=== PATIENT | male | born 1945 | race Caucasian/White ===

== ENCOUNTER 2017-08-21 15:14 | Emergency (ER) | payer BC, OTHER ==
[2017-08-21 15:23] VITALS: O2SAT 94
--- NOTE | 2017-08-21 15:34 | CPEKG ---
Heart Rate: 89 RR Interval: 674 P-R Interval: 232 QRSD Interval: 144 QT Interval: 416 QTC Interval: 507 P [place]: 43 QRS [place]: -48 T Wave [place]: -8 EKG Severity - ABNORMAL ECG - EKG Impression: SINUS RHYTHM EKG Impression: VENTRICULAR BIGEMINY EKG Impression: FIRST DEGREE AV BLOCK EKG Impression: RIGHT BUNDLE BRANCH BLOCK Electronically Signed By: Jose Dave 21-Aug-2017 15:48:31
[2017-08-21 15:36] LABS: PLATELET COUNT 167 10^3/uL (150-400)
--- NOTE | 2017-08-21 15:36 | EDPHY ---
H & P Time Seen by Provider: 08/21/17 15:16 HPI/ROS: CHIEF COMPLAINT: Heart rate in the 30s HISTORY OF PRESENT ILLNESS: 72-year-old man was here for pulmonary rehab and the monitor at rehab was reading a heart rate of 37. He is brought here for evaluation. The patient denies chest pain or palpitations or feeling dizzy or lightheaded. He did have a stress test for some type of "flutter "at the [facility] 2 and half weeks ago was started on metoprolol and he is up to 50 mg a day. Feels a little bit more tired than when he started but otherwise feels all right. No dizziness or syncope or near syncope. REVIEW OF SYSTEMS: Eye: no change in vision ENT: no sore throat Cardiac: no chest pain or syncope Pulmonary: Chronic short of breath after a VATS procedure in 2011, has interstitial lung disease. Not changed from usual. Abdomen: no vomiting, diarrhea, abdominal pain Musculoskeletal: no back pain Skin: no rash Neuro: no headache Constitutional: no fever : no urinary symptoms A comprehensive 10 point review of systems is otherwise negative aside from elements mentioned in the history of present illness. PAST MEDICAL HISTORY: Interstitial lung disease, previous right lung surgery with VATS, cholecystectomy, appendectomy. Social history: Former smoker General Appearance: Alert and conversant, cooperative. Eyes: No scleral icterus. ENT, Mouth: Normal mucous membranes. Respiratory: Normal respiratory effort, breath sounds equal, lungs are clear to auscultation. Cardiovascular: Regular rate with frequent extrasystole, consistent with bigeminy. No murmur. Gastrointestinal: Abdomen is soft and non tender. Neurological: Alert, face symmetric, normal motor and sensory in extremities. Skin: Warm and dry, no rashes. Musculoskeletal: Trace peripheral edema bilaterally but no calf tenderness. Psychiatric: Not agitated. Emergency Department course/MDM: The patient's rhythm strips from pulmonary rehab or personally reviewed. When he is in bigeminy with a rate of between 60 and 70, the monitor variously read a heart rate of 107, 78, and 37. In front of me his heart rate is in the 80s and he does not have any symptoms of severe bradycardia. This strips from rehab showed bigeminy and did not show bradycardia. Patient is warned he needs to ask his physician at the [facility] about the metoprolol given the fact that he is tired. I do think he is stable for discharge and does not require emergent pacemaker or medication adjustment or admission for monitoring given his presentation in the ED. 1555: Results discussed with patient, strips were reviewed since he has been here, no severe bradycardia, continues in bigeminy. Smoking Status: Never smoked Constitutional: Initial Vital Signs Temperature (C) 36.2 C 08/21/17 15:20 Heart Rate 77 08/21/17 15:20 Respiratory Rate 18 08/21/17 15:20 Blood Pressure 148/57 H 08/21/17 15:20 O2 Sat (%) 94 08/21/17 15:20 O2 Delivery Mode Room Air Allergies/Adverse Reactions: No Known Allergies Allergy (Unverified 08/21/17 15:19) Home Medications: Medication Instructions Recorded Albuterol 08/21/17 Amlodipine Besylate 08/21/17 Atorvastatin Calcium 08/21/17 Budesonide 08/21/17 Clobetasol 0.05% 08/21/17 Metoprolol Tartrate 08/21/17 Pantoprazole Sodium 08/21/17 Sertraline HCl 08/21/17 Zyrtec 08/21/17 traZODone 08/21/17 Medical Decision Making Differential Diagnosis: Differential considered including but not limited to bigeminy, sinus bradycardia , atrial fibrillation or flutter - Data Points Laboratory Results: Laboratory Results 08/21/17 15:20 08/21/17 15:20 08/21/17 08/21/17 15:20 15:20 WBC 10.47 10^3/uL H 10^3/uL (3.80-9.50) RBC 5.54 10^6/uL 10^6/uL (4.40-6.38) Hgb 17.2 g/dL g/dL (13.7-17.5) Hct 49.9 % % (40.0-51.0) MCV 90.1 fL fL (81.5-99.8) MCH 31.0 pg pg (27.9-34.1) MCHC 34.5 g/dL g/dL (32.4-36.7) RDW 14.1 % % (11.5-15.2) Plt Count 167 10^3/uL 10^3/uL (150-400) MPV 12.0 fL H fL (8.7-11.7) Neut % (Auto) 76.6 % H % (39.3-74.2) Lymph % (Auto) 13.8 % L % (15.0-45.0) Grand % (Auto) 7.1 % % (4.5-13.0) Eos % (Auto) 1.1 % % (0.6-7.6) Baso % (Auto) 0.5 % % (0.3-1.7) Nucleat RBC Rel Count 0.0 % % (0.0-0.2) Absolute Neuts (auto) 8.03 10^3/uL H 10^3/uL (1.70-6.50) Absolute Lymphs (auto) 1.44 10^3/uL 10^3/uL (1.00-3.00) Absolute Monos (auto) 0.74 10^3/uL 10^3/uL (0.30-0.80) Absolute Eos (auto) 0.12 10^3/uL 10^3/uL (0.03-0.40) Absolute Basos (auto) 0.05 10^3/uL 10^3/uL (0.02-0.10) Absolute Nucleated RBC 0.00 10^3/uL 10^3/uL (0-0.01) Immature Gran % 0.9 % % (0.0-1.1) Immature Gran # 0.09 10^3/uL 10^3/uL (0.00-0.10) Sodium 145 mEq/L mEq/L (135-145) Potassium 4.3 mEq/L mEq/L (3.5-5.2) Chloride 104 mEq/L mEq/L (97-110) Carbon Dioxide 27 mEq/l mEq/l (22-31) Anion Gap 14 mEq/L mEq/L (8-16) BUN 22 mg/dL mg/dL (7-23) Creatinine 1.0 mg/dL mg/dL (0.7-1.3) Estimated GFR > 60 Glucose 93 mg/dL mg/dL (70-100) Calcium 9.9 mg/dL mg/dL (8.5-10.4) Departure - Departure Disposition: Home, Routine, Self-Care Clinical Impression: Ventricular bigeminy Condition: Good Instructions: Premature Ventricular Contractions (ED) Additional Instructions: Do not increase or decrease your metoprolol dose until after speaking with [facility]. [facility] tomorrow to let her know that you are feeling very tired, possibly a side effect to the metoprolol. You were seen in the emergency department today for report of a pulse of 37, but your EKG showed bigeminy, your heart rate was between 70 and 90. Blood pressure was 148/57. Referrals: Dr. Vel [Other] - As per Instructions
[2017-08-21 16:11] VITALS: BP 102/59; PULSE 78; RESP 15; TEMP 98.1
== END 2017-08-21 16:11 | disposition home or self-care (01) ==
DX: I49.3 Ventricular premature depolarization (principal); Z87.891 Personal history of nicotine dependence

== ENCOUNTER → 2018-01-11 | Outpatient (CLI) | payer OTHER ==
[~2018-01-11] MED LIST: GADOBUTROL 10 ML VIAL IVP ONE
== END ==
LOC: FIMAGING 12:51
DX: I97.89 Other postprocedural complications and disorders of the circulatory system, not elsewhere classified (principal); I51.89 Other ill-defined heart diseases
CPT/HCPCS: 82565-PO; A9585

== ENCOUNTER 2018-02-12 10:18 | Inpatient (IN) | payer OTHER, BC ==
[2018-02-12] MEDS ORDERED: NS 1,000 ML IV ONE (10:51)
--- NOTE | 2018-02-12 11:10 | CPEKG ---
Heart Rate: 90 RR Interval: 667 P-R Interval: 224 QRSD Interval: 144 QT Interval: 396 QTC Interval: 485 P [place]: 40 QRS [place]: -36 T Wave [place]: 8 EKG Severity - ABNORMAL ECG - EKG Impression: SINUS RHYTHM EKG Impression: MULTIPLE VENTRICULAR PREMATURE COMPLEXES EKG Impression: FIRST DEGREE AV BLOCK EKG Impression: RIGHT BUNDLE BRANCH BLOCK Electronically Signed By: Steve Syed 12-Feb-2018 11:21:12
--- NOTE | 2018-02-12 11:20 | EDPHY ---
H & P Stated Complaint: R FLANK PAIN/NAUSEA Time Seen by Provider: 02/12/18 10:51 HPI/ROS: CHIEF COMPLAINT: Right flank pain HISTORY OF PRESENT ILLNESS: The patient presents to the ED with complaints of right flank pain which has been intermittent over the past week and worsening over the past day. The patient does report a history of nausea. He denies prior history of kidney stone. 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 The patient denies any vomiting. He denies any measured fever. He does complain of generalized weakness. The patient takes no anticoagulant medications. He does have a history of COPD and uses oxygen at night. The patient rates his pain is moderate in nature. REVIEW OF SYSTEMS: A comprehensive 10 point review of systems is otherwise negative aside from elements mentioned in the history of present illness. Source: Patient Exam Limitations: No limitations - Personal History Current Tetanus Diphtheria and Acellular Pertussis (TDAP): Yes - Medical/Surgical History Hx Asthma: No Hx Chronic Respiratory Disease: Yes Hx Diabetes: No Hx Cardiac Disease: No Hx Renal Disease: No Hx Cirrhosis: No Hx Alcoholism: No Hx HIV/AIDS: No Hx Splenectomy or Spleen Trauma: No Other PMH: PMH: pleural effusion with R lung scarring and surgical intervention 2012, hyperlipidemia, depression. PSH: appy, choly - Social History Smoking Status: Never smoked - Physical Exam Exam: General Appearance: Alert, mild discomfort Eyes: Pupils equal and round no pallor or injection ENT, Mouth: Mucous membranes moist Respiratory: There are no retractions, lungs are clear to auscultation Cardiovascular: Regular rate and rhythm Gastrointestinal: Tenderness to palpation right mid quadrant Back: Right CVA tenderness Neurological: 5/5 strength all 4 extremities Skin: Warm and dry, no rashes Musculoskeletal: Neck is supple nontender Extremities: symmetrical, full range of motion Constitutional: Initial Vital Signs Temperature (C) 36.7 C 02/12/18 10:26 Heart Rate 93 02/12/18 10:26 Respiratory Rate 18 02/12/18 10:26 Blood Pressure 133/106 H 02/12/18 10:26 O2 Sat (%) 93 02/12/18 10:26 O2 Delivery Mode Room Air Allergies/Adverse Reactions: No Known Allergies Allergy (Verified 02/12/18 10:23) Home Medications: Medication Instructions Recorded Atorvastatin Calcium 08/21/17 Budesonide 08/21/17 Clobetasol 0.05% 08/21/17 Metoprolol Tartrate 08/21/17 Pantoprazole Sodium 08/21/17 Sertraline HCl 08/21/17 Zyrtec 08/21/17 traZODone 08/21/17 Lisinopril 02/12/18 Medical Decision Making - Diagnostics EKG Interpretation: EKG: Complete interpretation has been separately recorded in the [facility] archive. Summary impression: Sinus rhythm, rate 90, first-degree AV block, right bundle branch block Imaging Results: Imaging Impressions Abdomen/Pelvis CT 02/12/18 12:42 Impression: 1. Moderate right hydroureteronephrosis secondary to a 6 mm obstructing calculus in the distal right ureter. 2. No left nephrolithiasis or hydronephrosis. 3. Prior cholecystectomy. 4. Sigmoid diverticulosis without diverticulitis. Attention: This CT examination is specifically designed to evaluate patients who are clinically suspected of having acute obstructive uropathy. This examination does not use radiographic contrast, and as such, provides only a limited evaluation of the abdomen, pelvis and retroperitoneum. If there is further clinical suspicion for pathological conditions other than obstructive uropathy, a complete CT evaluation of the abdomen and pelvis utilizing intravenous, oral, and rectal contrast should be considered. Findings and recommendations discussed with Emergency Department physician, Steve Syed at 1336 hour, 02/12/2018. Final report concurs with initial preliminary interpretation. ED Course/Re-evaluation: The patient presents the ED for evaluation of right flank pain. The patient does have a history of BPH and cystitis. His urinalysis does demonstrate fairly significant pyuria and bacteriuria. The patient was taken for CT scan of the abdomen pelvis which does demonstrate a 6 mm right ureteral stone and moderate associated hydronephrosis. The patient had an IV established. He received 1 g of IV ceftriaxone. Consultation was made with Urology at 1:15pm The patient will require admission to the hospital in the setting of a possible infected kidney stone. Case was discussed with hospitalist at 2:30 p.m.. He will be admitted by Dr. Watson. Still awaiting a return call from Dr. Burgess from urology. The patient is given a 0.5 mg of Dilaudid for pain control. He was also given 0.4 mg of Flomax. Differential Diagnosis: Differential diagnosis considered includes pyelonephritis, nephrolithiasis, ureterolithiasis, renal failure, dehydration, metabolic abnormality - Data Points Laboratory Results: Laboratory Results 02/12/18 11:00 02/12/18 11:00 02/12/18 02/12/18 02/12/18 11:25 11:00 11:00 WBC 10.44 10^3/uL H 10^3/uL (3.80-9.50) RBC 5.21 10^6/uL 10^6/uL (4.40-6.38) Hgb 16.0 g/dL g/dL (13.7-17.5) Hct 46.9 % % (40.0-51.0) MCV 90.0 fL fL (81.5-99.8) MCH 30.7 pg pg (27.9-34.1) MCHC 34.1 g/dL g/dL (32.4-36.7) RDW 14.4 % % (11.5-15.2) Plt Count 141 10^3/uL L 10^3/uL (150-400) MPV 11.5 fL fL (8.7-11.7) Neut % (Auto) 87.9 % H % (39.3-74.2) Lymph % (Auto) 4.1 % L % (15.0-45.0) [place] % (Auto) 5.9 % % (4.5-13.0) Eos % (Auto) 0.6 % % (0.6-7.6) Baso % (Auto) 0.4 % % (0.3-1.7) Nucleat RBC Rel Count 0.0 % % (0.0-0.2) Absolute Neuts (auto) 9.17 10^3/uL H 10^3/uL (1.70-6.50) Absolute Lymphs (auto) 0.43 10^3/uL L 10^3/uL (1.00-3.00) Absolute Monos (auto) 0.62 10^3/uL 10^3/uL (0.30-0.80) Absolute Eos (auto) 0.06 10^3/uL 10^3/uL (0.03-0.40) Absolute Basos (auto) 0.04 10^3/uL 10^3/uL (0.02-0.10) Absolute Nucleated RBC 0.00 10^3/uL 10^3/uL (0-0.01) Immature Gran % 1.1 % % (0.0-1.1) Immature Gran # 0.12 10^3/uL H 10^3/uL (0.00-0.10) Platelet Estimate Not Reported Sodium 141 mEq/L mEq/L (135-145) Potassium 4.3 mEq/L mEq/L (3.3-5.0) Chloride 108 mEq/L mEq/L (97-110) Carbon Dioxide 26 mEq/l mEq/l (22-31) Anion Gap 7 mEq/L L mEq/L (8-16) BUN 25 mg/dL H mg/dL (7-23) Creatinine 1.1 mg/dL mg/dL (0.7-1.3) Estimated GFR > 60 Glucose 133 mg/dL H mg/dL (70-100) Calcium 9.6 mg/dL mg/dL (8.5-10.4) Urine Color YELLOW Urine Appearance HAZY Urine pH 5.0 (5.0-7.5) Ur Specific [place] 1.023 (1.002-1.030) Urine Protein NEGATIVE (NEGATIVE) Urine Ketones NEGATIVE (NEGATIVE) Urine Blood 2+ H (NEGATIVE) Urine Nitrate NEGATIVE (NEGATIVE) Urine Bilirubin NEGATIVE (NEGATIVE) Urine Urobilinogen 2.0 EU H EU (0.2-1.0) Ur Leukocyte Esterase 3+ H (NEGATIVE) Urine RBC 15-25 /hpf H /hpf (0-3) Urine WBC 50-182 /hpf H /hpf (0-3) Ur Epithelial Cells TRACE /lpf /lpf (NONE-1+) Urine Bacteria TRACE /hpf H /hpf (NONE SEEN) Hyaline Casts 1-5 /lpf /lpf (0-1) Urine Mucus 2+ /lpf H /lpf (NONE-1+) Urine Glucose NEGATIVE (NEGATIVE) Medications Given: Discontinued Medications Hydrocodone Bitart/Acetaminophen ([place] 5/325) 1 tab PO EDNOW ONE Stop: 02/12/18 14:17 Last Admin: 02/12/18 14:23 Dose: Not Given Sodium Chloride (Ns) 1,000 mls @ 0 mls/hr IV EDNOW ONE; Wide Open PRN Reason: Protocol Stop: 02/12/18 10:52 Last Admin: 02/12/18 10:59 Dose: 1,000 mls Ceftriaxone Sodium/Dextrose (Rocephin 1 Gm (Premix)) 50 mls @ 100 mls/hr IV EDNOW ONE PRN Reason: Protocol Stop: 02/12/18 12:56 Last Admin: 02/12/18 12:46 Dose: 50 mls Tamsulosin HCl (Flomax) 0.4 mg PO EDNOW ONE Stop: 02/12/18 13:37 Last Admin: 02/12/18 13:41 Dose: 0.4 mg Departure - Departure Disposition: [facility] Inpatient Acute Clinical Impression: Acute pyelonephritis, Renal colic on right side Condition: Good Referrals: NONE *PRIMARY CARE P,. [Primary Care Provider] - As per Instructions
[2018-02-12 11:24] LABS: PLATELET COUNT 141 10^3/uL (150-400)
[2018-02-12] MEDS ORDERED: TAMSULOSIN HCL 0.4 MG CAP PO ONE (13:36)
[2018-02-12] MEDS ORDERED: HYDROCODONE/APAP 5/325 TAB PO ONE (14:16)
[2018-02-12] MEDS ORDERED: HYDROmorphONE/DILAUDID 2 MG/ML INJ IVP ONE (14:19)
[2018-02-12] MEDS ORDERED: ONDANSETRON DISINTEGRATING 4 MG TAB PO PRN (14:37)
[2018-02-12] MEDS ORDERED: ACETAMINOPHEN 325 MG TAB PO PRN (14:37)
[2018-02-12] MEDS ORDERED: FLUTICASONE NASAL 120 SPRAYS/16 GM MDI NS PRN (15:08)
--- NOTE | 2018-02-12 15:50 | GHP ---
[f rep st] HISTORY AND PHYSICAL DATE OF ADMISSION: 02/12/2018 CHIEF COMPLAINT: Right flank pain. HISTORY OF PRESENT ILLNESS: A 73-year-old male with hypertension, hyperlipidemia, presenting with right flank pain. This has been intermittent for the past week, dull in nature. It intensified last night and has been constant since then. Has mild nausea, subjective fevers, chills, and sweats. Reports normal p.o. intake. Noted loose stools. No headaches or myalgias. CT in the ER revealed a 6 mm stone right distal ureter. REVIEW OF SYSTEMS: I completed a 10-point review of systems, negative, except noted in HPI. PAST MEDICAL HISTORY: Hypertension, hyperlipidemia, pleural effusion, non- Hodgkin's lymphoma status post chemo, chronic hypoxemic respiratory failure, 2 L at night, PVCs. PAST SURGICAL HISTORY: Tonsillectomy and adenoidectomy, cholecystectomy, appendectomy, VATS. FAMILY HISTORY: Noncontributory. SOCIAL HISTORY: He was a [place] vet in the [place]. Works and lives here in [place], but his family is in [place]. Denies alcohol, tobacco, or illicits. ALLERGIES: Penicillin makes him nauseous. HOME MEDICATIONS: Triamcinolone spray, Vanicream, ketoconazole cream, desonide cream, Tylenol, Symbicort inhaler, atorvastatin 40 mg daily, trazodone 100 mg q.h.s., Zoloft 100 mg q.h.s., Protonix 40 mg daily, lisinopril 20. PHYSICAL EXAMINATION: VITAL SIGNS: Temperature 36.9, blood pressure is 116/74 , heart rate in the 70s, respirations 18, on room air 93%. GENERAL: Obese male lying in bed in no acute distress. HEENT: PERRLA. Mildly dry mucous membranes. CV: Regular rate and rhythm with occasional extra beat. LUNGS: Diminished, but no wheezing or crackles. ABDOMEN: Obese, soft, nontender, nondistended. : No suprapubic or CVA tenderness. MUSCULOSKELETAL: 5/5 upper lower extremity strength. NEURO: 2 through 12 intact. PSYCH: Alert and oriented x3. Very pleasant. LABORATORY/IMAGING: Sodium 141, potassium 4.3, chloride 108, carbon dioxide 26 , BUN 25, creatinine 1.1, baseline is 1, glucose 133, calcium 9.6. Urine: +3 leuks, 50-182 wbc's, trace bacteria. Urine culture pending. WBC 10, hemoglobin 16, hematocrit 46, platelets 141. CT abdomen and pelvis: Moderate right hydroureteronephrosis, secondary to 6 mm obstructing calculus in the right distal ureter. No left stones or hydronephrosis. Prior cholecystectomy, sigmoid diverticulosis without diverticulitis. EKG is personally reviewed by me: Normal sinus rhythm, PVC, right bundle branch block seen on prior. ASSESSMENT/PLAN: 1. Right distal ureter stone with urinary tract infection: IV CTX. Culture is pending. Dr. Berger was consulted from the emergency room. Pain control with oral opioids and Tylenol. 2. Hypertension. Lisinopril. 3. Hyperlipidemia. Statin. 4. History of non-Hodgkin's lymphoma, status post chemo. 5. Chronic hypoxemic respiratory failure: He attributes to prior video- assisted thoracoscopic surgery procedure on 2 L at night. 6. Premature ventricular contractions. Potassium is at goal. Add a magnesium. 7. Diet. Regular. 8. Deep venous thrombosis prophylaxis. Sequential compression devices. DISPOSITION: Patient warrants observation admission for acute kidney stone requiring IV antibiotics, pain control, and evaluation by the Urology. /[id number]/MODL MTDD
[2018-02-12] MEDS ORDERED: NS 1,000 ML IV SCH (17:30)
[2018-02-12] MEDS: SERTRALINE HCL 100 MG TAB PO SCH (20:54)
[2018-02-12] MEDS: traZODone 100 MG TAB PO SCH (20:54)
[2018-02-12] MEDS: BUDESONIDE/FORMOTEROL 80/4.5 60 PUFFS/MDI IH SCH (20:55)
--- NOTE | 2018-02-13 00:37 | SOAPPROG ---
SOAP Progress Note Assessment/Plan: Assessment: 1. Symptomatic distal right ureteral calculus. 2. Pyuria: asymptomatic. Plan: 1. Continue medical mgmt. until tomorrow. 2. Agree w/ starting IV antibiotics. 3. Proceed w/ intraoperative ureteroscopy on Sun. afternoon if he does not spontaneously pass the stone in the meantime. See dictated consult note (# [id number]) Objective: Vital Signs Temp Pulse Resp BP Pulse Ox 36.8 C 80 16 128/63 H 97 02/12/18 16:07 02/12/18 23:55 02/12/18 23:55 02/12/18 23:55 02/12/18 23:55 02/11/18 02/12/18 02/13/18 05:59 05:59 05:59 Intake Total 1250 Output Total 1275 Balance -25 ICD10 Worksheet Patient Problems: Problems Problem Status Onset Acute pyelonephritis Acute Renal colic on right side Acute
--- NOTE | 2018-02-13 05:08 | GCON ---
[f rep st] CONSULTATION UROLOGY CONSULTATION DATE OF CONSULTATION: 02/12/2018 REQUESTING PHYSICIAN: Hospitalist service. REASON FOR CONSULTATION: Right ureteral calculus. HISTORY: This is a 73-year-old gentleman who started experiencing right-sided flank and abdominal pain about 1 week ago. The pain was initially dull, but then intensified to the point that he presented to the emergency room earlier today. CT scan was performed, and the patient was noted to have a right ureteral calculus. I was asked to see the patient as a result. The patient has also experienced occasional nausea prior to admission, but denies fevers, flu-like symptoms, dysuria, nor gross hematuria, but he has had some night sweats. He denies any prior history of nephrolithiasis. PAST MEDICAL HISTORY: Notable for hypertension, high cholesterol, history of right pleural effusion in 2011, non-Hodgkin lymphoma in early , nocturnal hypoxemia, history of diverticulitis. PAST SURGICAL HISTORY: Includes tonsillectomy as a child, cholecystectomy in 2007, appendectomy, and VATS procedure for pleural effusion in 2011. FAMILY HISTORY: Not contributory. Specifically, no kidney stones to his knowledge. SOCIAL HISTORY: The patient is and lives in the [facility]. He denies current use of tobacco nor alcohol products. REVIEW OF SYSTEMS: Unremarkable other than mentioned above in the HPI and Past Medical History. PHYSICAL EXAMINATION: GENERAL: Obese white male lying supine in bed in no acute distress presently. VITAL SIGNS: Blood pressure 122/75, pulse 85, respirations 18, oxygen saturation is 93% on room air, temperature 36.8 Celsius. Height 176 cm, weight 111 kg, BMI 36. HEENT: Normocephalic, atraumatic. NECK: Supple. HEART: Regular rate. CHEST: Unlabored respiratory pattern. ABDOMEN: General obesity. No palpable abnormal masses. No obvious organomegaly, nontender and soft. BACK: No CVA tenderness. GENITALIA: Normal circumcised phallus with an adequate-sized urethral meatus in proper position. Scrotal structures are unremarkable. EXTREMITIES: Warm, without cyanosis, clubbing, nor significant edema. NEUROLOGIC: He is alert and oriented. He answers all questions appropriately with normal mood and affect. RADIOGRAPHIC STUDIES: Noncontrast abdominopelvic CT scan on admission: Upon my review, notable for mild to moderate right hydronephrosis and hydroureter down to an approximately 5 x 4 x 7 mm long distal right ureteral calculus. No other nephroureterolithiasis is appreciated. LABORATORY: Admission chemistry panel notable for creatinine 1.1 and normal electrolytes. Calcium 9.6. CBC notable for white blood cell count 10,400. Admission urinalysis notable for 3+ leukocyte on dipstick with 15-25 red blood cells, 50-182 white blood cells, and trace bacteria per high-power field. IMPRESSION: 1. Symptomatic distal right ureteral calculus. 2. Pyuria: He does not exhibit evidence of a symptomatic urinary tract infection at this time. Management options were reviewed with the patient in detail today. Surgical management for a non-passable ureteral calculus was reviewed, including technical aspects, expected benefits, typical recovery time, and potential risks /complications (including, but not limited to, urinary tract infection, urinary tract scarring, inability to remove or find an existing calculus, and ureteral stent side effects). PLAN: 1. Continue medical management with Flomax and IV fluids through the night. 2. The patient has already been started on Rocephin, which I believe makes sense considering his existing pyuria. 3. If he does not spontaneously pass the calculus by tomorrow, we will proceed with intraoperative ureteroscopy and calculus management with stent placement late tomorrow afternoon. Thank you for this consultation. /[id number]/MODL MTDD
[2018-02-13] MEDS: OXYCODONE/APAP 5/325 TAB PO PRN ×3 (05:45→20:21)
[2018-02-13] MEDS ORDERED: LISINOPRIL 20 MG TAB PO SCH (09:00)
[2018-02-13] MEDS ORDERED: ATORVASTATIN CALCIUM 40 MG TAB PO SCH (09:00)
[2018-02-13] MEDS: BUDESONIDE/FORMOTEROL 80/4.5 60 PUFFS/MDI IH SCH ×2 (09:53→20:24)
[2018-02-13] MEDS: VANICREAM CREAM TP SCH (10:17)
[2018-02-13] MEDS: PANTOPRAZOLE SODIUM 40 MG TAB PO SCH (10:18)
--- NOTE | 2018-02-13 11:01 | ASMTCMCOM ---
CM Note CM Note Notes: Patient admitted with flank pain - found to have a distal right ureteral calculus. Surgery planned for this afternoon if he does not pass stone. Patient is normally independent, and I don't anticipate any discharge needs. Case Management available if this changes. Date Signed: 02/13/2018 11:00 AM Electronically Signed By:Tavia Hills RN
--- NOTE | 2018-02-13 11:56 | HOSPPROG ---
Hospitalist Progress Note Assessment/Plan: [facility] Patient Name: ALIN FIGUEREDO Rpt#: [id number] Unit Number: [id number] Attending/ER Physician: Kaylen Watson MD Patient Type: ADM Carmen Adm Date/Source: 02/12/18 EMR Discharge Date: Primary Carrier: MEDICARE INPATIENT Patient is a 73 y/o male who presented with flank pain. CT in the ER revealed a 6 mm stone right distal ureter. Today is my first encounter with the patient, chart reviewed. * Right distal ureter stone -Flomax and fluids -ureteroscopy and stent placement today with Dr Berger -patient is anxious about the procedure; will add prn Ativan *possible UTI -patient has vague symptoms but urine shows pyuria -will continue Ceftriaxone * Hypertension. Lisinopril. * Hyperlipidemia. Statin. * History of non-Hodgkin's lymphoma, status post chemo. * Chronic hypoxemic respiratory failure: He attributes to prior video-assisted thoracoscopic surgery procedure on 2 L at night. * Premature ventricular contractions. Potassium is at goal. Add a magnesium. *Plan: he is not going for the procedure till later today (16:00) and will be given IV sedation and narcotics. He lives alone and will require another midnight stay to monitor after getting IV medications. Subjective: Lucio is feeling comfortable after getting pain meds and anti-nausea meds Objective: Vital Signs Temp Pulse Resp BP Pulse Ox 36.6 C 80 20 116/75 92 02/13/18 08:00 02/13/18 09:54 02/13/18 09:54 02/13/18 08:00 02/13/18 09:54 Laboratory Results 02/13/18 04:16 02/12/18 02/13/18 02/14/18 05:59 05:59 05:59 Intake Total 1750 Output Total 8870 725 Balance -125 -725 - Physical Exam Constitutional: appears nourished, not in pain, obese Eyes: PERRL Ears, Nose, Mouth, Throat: hearing normal Cardiovascular: regular rate and rhythym Respiratory: no respiratory distress Gastrointestinal: normoactive bowel sounds, other (large and round) Skin: warm Neurologic: AAOx3 Psychiatric: interacting appropriately ICD10 Worksheet Patient Problems: Problems Problem Status Onset Acute pyelonephritis Acute Renal colic on right side Acute
[2018-02-13] MEDS: ONDANSETRON 4 MG/2 ML VIAL IVP PRN ×2 (12:06→18:52)
[2018-02-13] MEDS: NS 1,000 ML IV SCH (12:07)
[2018-02-13] MEDS ORDERED: LISINOPRIL 10 MG TAB PO SCH (12:15)
[2018-02-13] MEDS ORDERED: LORazepam 2 MG/ML INJ IVP PRN (12:50)
[2018-02-13] MEDS ORDERED: HYDROmorphONE/DILAUDID 1 MG/ML INJ IVP PRN (12:50)
[2018-02-13] MEDS: ATORVASTATIN CALCIUM 20 MG TAB PO SCH (13:11)
[2018-02-13] MEDS: TAMSULOSIN HCL 0.4 MG CAP PO SCH (13:20)
[2018-02-13] MEDS ORDERED: LR 1,000 ML IV ONE (16:06)
[2018-02-13] MEDS ORDERED: IOPAMIDOL (ISOVUE-300) 150 ML BTL ONE (16:23)
[2018-02-13] MEDS ORDERED: LIDOCAINE 2% JELLY 20 ML (UROJECT) ONE (16:23)
[2018-02-13] MEDS ORDERED: IOPAMIDOL (ISOVUE-M 300) 15 ML VIAL ONE ×2 (16:23→16:28)
[2018-02-13] MEDS ORDERED: IOPAMIDOL (ISOVUE-M 200) 20 ML VIAL ONE (16:26)
[2018-02-13] MEDS ORDERED: HYDROCODONE/APAP 5/325 TAB PO PRN (16:43)
[2018-02-13] MEDS ORDERED: NALOXONE HCL 0.4 MG/ML INJ IVP PRN (16:43)
[2018-02-13] MEDS ORDERED: oxyCODONE IR 5 MG TAB PO PRN (16:43)
[2018-02-13] MEDS ORDERED: PROMETHAZINE HCL 25 MG/ML INJ IVP PRN (16:43)
[2018-02-13] MEDS ORDERED: ONDANSETRON 4 MG/2 ML VIAL IVP PRN (16:43)
[2018-02-13] MEDS ORDERED: DEXAMETHASONE 4 MG/ML VIAL IVP PRN (16:43)
[2018-02-13] MEDS ORDERED: fentaNYL 100 MCG/2 ML INJ IVP PRN (16:43)
[2018-02-13] MEDS ORDERED: ACETAMINOPHEN 500 MG TAB PO PRN (16:43)
[2018-02-13] MEDS ORDERED: LR 500 ML IV PRN (16:43)
[2018-02-13] MEDS ORDERED: ENALAPRILAT DIHYDRATE 1.25 MG/ML VIAL IVP PRN (16:43)
--- NOTE | 2018-02-13 16:43 | PDANEPAE ---
ANE Past Medical History - Cardiovascular History Hx Hypertension: Yes Hx Arrhythmias: Yes Hx Chest Pain: No Hx Coronary Artery / Peripheral Vascular Disease: No Hx CHF / Valvular Disease: No Hx Palpitations: No - Pulmonary History Hx COPD: Yes Hx Oxygen in Use at Home: Yes O2 in Use at Home (L/minute): 2 Hx Sleep Apnea: No Sleep Apnea Screening Result - Last Documented: Positive - Endocrine History Hx Diabetes: No Obesity: yes, moderate - Chronic Pain History Chronic Pain: No ANE Review of Systems Review of Systems: ANE Patient History - Allergies Allergies/Adverse Reactions: No Known Allergies Allergy (Verified 02/13/18 16:01) - Home Medications Home medications: home medication list seen and reviewed Home Medications: Atorvastatin Calcium [Lipitor 40 mg (*)] 20 mg PO DAILY 08/21/17 [Last Taken ] Budesonide/Formoterol 80/4.5 [Symbicort 80-4.5 Mcg Inhaler] 2 puffs IH BID 08/21 [Last Taken 02/11/18 21:00] Pantoprazole Sodium [Protonix 40mg (*)] 40 mg PO DAILY 08/21/17 [Last Taken ] Sertraline HCl [Zoloft 100mg (*)] 100 mg PO HS 08/21/17 [Last Taken 02/11/18] traZODone [traZODONE 100MG (*)] 100 mg PO HS 08/21/17 [Last Taken 02/11/18] Acetaminophen [Tylenol 325mg (*)] 650 - 975 mg PO DAILY PRN 02/12/18 [Last Taken 02/11/18 21:00 975MG] Desonide 0.05% [Desonide 0.05% Cream (*)] 1 leeanna TP DAILY 02/12/18 [Last Taken Unknown] Ketoconazole 2% [Nizoral Shampoo (*)] 1 leeanna TP DAILY 02/12/18 [Last Taken Unknown] Lisinopril [Zestril 20 mg (*)] 10 mg PO HS 02/12/18 [Last Taken 02/11/18] Triamcinolone Acetonide [Nasacort] 1 spray NS DAILY PRN 02/12/18 [Last Taken Unknown] Vanicream [Vanicream (*)] 1 leeanna TP DAILY 02/12/18 [Last Taken Unknown] - NPO status NPO Status: no food or drink >8 hours NPO Since - Liquids (Date): 02/13/18 NPO Since - Liquids (Time): 07:30 NPO Since - Solids (Date): 02/13/18 NPO Since - Solids (Time): 07:30 - Anes Hx Anes Hx: no prior problems - Smoking Hx Smoking Status: Never smoked ANE Labs/Vital Signs - Labs Result Diagrams: 02/12/18 11:00 02/13/18 04:16 - Vital Signs Blood Pressure: 122/78 Heart Rate: 113 Respiratory Rate: 18 O2 Sat (%): 93 Height: 176.53 cm Weight: 111.13 kg ANE Physical Exam - Airway Neck exam: FROM Mallampati Score: Class 2 Mouth exam: normal dental/mouth exam - Pulmonary Pulmonary: no respiratory distress, no rales or rhonchi, reduced air movement - Cardiovascular Cardiovascular: regular rate and rhythym, no murmur, rub, or gallop - ASA Status ASA Status: III ANE Anesthesia Plan Anesthesia Plan: GA w LMA
[2018-02-13] MEDS ORDERED: PROPOFOL 200 MG/20 ML VIAL ONE ×2 (16:50→17:27)
[2018-02-13] MEDS ORDERED: fentaNYL 100 MCG/2 ML INJ ONE ×2 (16:50→17:27)
[2018-02-13] MEDS ORDERED: LIDOCAINE 2% JELLY 5 ML TUBE ONE (16:51)
[2018-02-13] MEDS ORDERED: DEXAMETHASONE 4 MG/ML VIAL ONE (16:51)
[2018-02-13] MEDS ORDERED: ONDANSETRON 4 MG/2 ML VIAL ONE (16:51)
[2018-02-13] MEDS ORDERED: LIDOCAINE 2% 5 ML SDV ONE (17:09)
[2018-02-13] MEDS ORDERED: KETOROLAC 30 MG/1 ML SDV ONE (17:31)
--- NOTE | 2018-02-13 18:02 | POSTOPPROG ---
Post Op Note Date of Operation: 02/13/18 Surgeon: Cathleen Berger (# [id number]) Anesthesia: LMA Pre-op Diagnosis: Distal right ureteral calculus Post-op Diagnosis: Distal right ureteral calculus Procedure: Right ureteroscopy w/ laser litho & basket, stent placement Findings: See op note Inf/Abcess present in the surg proc area at time of surgery?: No EBL: Minimal Complications: None Drains: Other (4.7 Fr. variable length right ureteral stent) Specimen(s): Right ureteral calculus fragment Text Box - Additional Text Additional Text: Will order Edmonds removal in AM, then should be ready for discharge from my standpoint anytime thereafter. He will need to FU in my office in about 2-3 weeks for ureteral stent removal.
--- NOTE | 2018-02-13 18:14 | POSTANESTH ---
Post Anesthetic Evaluation Cardiovascular Status: Similar to Pre-Op Cond (A little tachycardic (108), similar to preop.) Respiratory Status: Similar to Pre-op Cond. Level of Consciousness/Mental Status: Can Participate in Eval, Alert and Oriented Pain Control: Adequate, Prn Tx Ordered Nausea/Vomiting Control: Adequate, Prn Tx Ordered Complications Possibly Related to Anesthesia: None Noted
--- NOTE | 2018-02-13 19:43 | GOP ---
[f rep st] OPERATIVE REPORT DATE OF OPERATION: 02/13/2018 SURGEON: Cathleen Berger MD ANESTHESIA: Laryngeal mask. PREOPERATIVE DIAGNOSIS: Symptomatic distal right ureteral calculus. POSTOPERATIVE DIAGNOSIS: Symptomatic distal right ureteral calculus. PROCEDURE PERFORMED: 1. Cystourethroscopy, right retrograde pyelography. 2. Right ureteroscopy with holmium laser calculus lithotripsy and basket extraction. 3. Right ureteral stent placement (4.7-Grenadian variable length). FINDINGS: 1. Sizeable distal right ureteral calculus. 2. Significant BPH with prominent intravesical median lobe. SPECIMENS: Right ureteral calculus fragment. ESTIMATED BLOOD LOSS: Minimal. INDICATIONS: This gentleman was admitted to the hospital yesterday with symptoms related to a right-sided ureteral calculus which he has been unable to pass spontaneously. It is recommended that he undergo intraoperative management at this time. The indications for the procedures as well as potential risks and complications were discussed with the patient preoperatively. He appeared to understand, his questions were answered, and he wished to proceed. Written informed surgical consent was thereafter obtained. DESCRIPTION OF PROCEDURE: The patient was brought to the operating room and administered laryngeal mask anesthesia. He was carefully placed in the dorsal lithotomy position on the cystoscopic table. The genital area was sterilely prepped with Betadine scrub and paint, then draped in the usual sterile fashion. Cystoscopy was initially performed with the 30-degree and 70-degree lenses through a 22-Grenadian sheath. Anterior urethra revealed no abnormalities. Posterior urethra revealed moderate lateral lobe BPH with a prominent intravesical median lobe that hindered visualization of the trigone. This median lobe was also fairly vascular. The bladder was moderately to heavily trabeculated, but without any obvious areas of abnormal erythema, tumors, nor foreign bodies. Ureteral orifices were somewhat difficult to visualize due to the large intravesical median lobe. Nonetheless, I was able to eventually identify them, particularly the one of most concern on the right side. A 5-Grenadian open-ended ureteral catheter was used to perform retrograde pyelography on the right side. This revealed a filling defect in distal ureter with moderate proximal hydronephrosis and hydroureter. This was consistent with the preoperative CT imaging findings from yesterday. I then used the 5- Grenadian open-ended ureteral catheter to help navigate a 0.035 inch hydrophilic angle tipped guidewire up the right ureter, and was able to eventually advance the guidewire until it was seen within the renal collecting system fluoroscopically. The distal ureter was dilated with a 4 cm balloon by maintaining a pressure of 16 atmospheres for about 4 minutes. The balloon dilator and cystoscope were then removed while keeping the guidewire in place. Semi-rigid ureteroscopy was performed. The calculus was seen within the distal ureter. A 365 micron holmium laser fiber was used to fragment the calculus. Any remaining fragments were removed using a 0 tip Nitinol stone basket without complication. The dominant remaining fragment was sent to Pathology for chemical analysis. There was a reasonable amount of ureteral mucosal inflammation in the location where the stone was impacted. The ureteroscope was removed and the cystoscope was back-loaded over the guidewire. A 4.7-Grenadian variable length hydrophilic ureteral stent was advanced over the guidewire until it was properly positioned as seen fluoroscopically in the kidney and cystoscopically in the bladder. The bladder was then drained of all return, which was lightly bloody. Because of the large prostate and concerns of postoperative urinary retention, I decided to place a Edmonds catheter. Therefore, an 18-Grenadian coude tip catheter was inserted and passed into the bladder with return of bloody urine. The catheter irrigated easily, and the return at this point was light to dark pink. The catheter was connected to bag drainage. The patient was then awakened, transferred to his bed, then taken to the recovery room. He tolerated the procedure well overall. COMPLICATIONS: None. DISPOSITION: He was transferred to the recovery room in stable condition. He should probably be monitored in-house tonight, in light of his preoperative pyuria, to ensure he does not develop a worsening symptomatic infection. Assuming he is doing well tomorrow, and voiding following Edmonds catheter removal in the morning, then he should be ready for discharge from my standpoint with followup in my office in 2-3 weeks for ureteral stent removal. /[id number]/MODL MTDD
[2018-02-13] MEDS: LISINOPRIL 10 MG TAB PO SCH (20:21)
[2018-02-13] MEDS: SERTRALINE HCL 100 MG TAB PO SCH (20:21)
[2018-02-13] MEDS: traZODone 100 MG TAB PO SCH (20:21)
[2018-02-14] MEDS: NS 1,000 ML IV SCH ×2 (02:05→16:25)
[2018-02-14] MEDS: OXYCODONE/APAP 5/325 TAB PO PRN ×3 (07:25→20:20)
--- NOTE | 2018-02-14 08:16 | PDMN ---
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
[2018-02-14] MEDS: PANTOPRAZOLE SODIUM 40 MG TAB PO SCH (09:02)
[2018-02-14] MEDS: TAMSULOSIN HCL 0.4 MG CAP PO SCH (09:02)
[2018-02-14] MEDS: ATORVASTATIN CALCIUM 20 MG TAB PO SCH (09:02)
[2018-02-14] MEDS: BUDESONIDE/FORMOTEROL 80/4.5 60 PUFFS/MDI IH SCH ×2 (09:36→19:52)
[2018-02-14] MEDS: VANICREAM CREAM TP SCH (17:02)
--- NOTE | 2018-02-14 17:18 | HOSPPROG ---
Hospitalist Progress Note Assessment/Plan: Assessment: 73 y/o male p/w acute obstructive nephrolithiasis Plan: # Obstructive nephrolithiasis. Acute, new problem, further w/u indicated. R side , 6mm stone, POD#[address] Berger w/ significant post-procedure hematuria -d/w Dr. Berger, recommends removing montana and trial void -patient is at risk for lower urinary obstructing clots, so if he does not pass urine despite urge, get bladder scan -stone sent for analysis # Hydronephrosis. Acute, right side on CT, 2/2 stone -currently stent in place, f/u in outpt setting in 2 weeks for removal -cont pain control # Possible E. faecalis UTI. POA, 2/2 stone irritation, UA + w/ UCx E. faecalis -adjusted to augmentin bid, D#08/01 # Suspected BPH. Likely cause of montana trauma -cont flomax # Hypertension. Chronic, cont lisinopril. # Hyperlipidemia. Statin. # History of non-Hodgkin's lymphoma, status post chemo. # Chronic hypoxemic respiratory failure: He attributes to prior video-assisted thoracoscopic surgery procedure on 2 L at night. # Premature ventricular contractions. Monitor lytes Diet. Regular PPx. Hold pharm given hematuria, SCDs Code. Full Dispo. ADD 02/15, pending ability to void and improvement in gross hematuria. Subjective: gross hematuria in montana, less abd pain Objective: Vital Signs Temp Pulse Resp BP Pulse Ox 36.7 C 68 16 97/48 L 90 L 02/14/18 15:44 02/14/18 15:44 02/14/18 15:44 02/14/18 15:44 02/14/18 15:44 02/13/18 02/14/18 02/15/18 05:59 05:59 05:59 Intake Total 1129 2200 Output Total 270 150 Balance 859 2050 - Pending Discharge Pending Discharge Within 24 Hours: Yes Pending Discharge Date: 02/15/18 Pending Discharge Time: 11:00 - Physical Exam Constitutional: no apparent distress, not in pain, obese, uncomfortable Cardiovascular: other (ectopic beats frequent), No systolic murmur, No tachycardia, No edema Respiratory: no respiratory distress, no rales or rhonchi, clear to auscultation Gastrointestinal: normoactive bowel sounds, soft, non-tender abdomen, no palpable masses, No guarding, No distension Genitourinary: montana in urethra (with fatemeh blood), other (mild bleeding around montana in meatus) Neurologic: AAOx3 Psychiatric: interacting appropriately, not anxious, not encephalopathic, thought process linear ICD10 Worksheet Patient Problems: Problems Problem Status Onset Acute pyelonephritis Acute Renal colic on right side Acute
[2018-02-14] MEDS: AMOXICILLIN/CLAVULANATE POT 875/125 MG TAB PO SCH (20:20)
[2018-02-14] MEDS: LISINOPRIL 10 MG TAB PO SCH (20:20)
[2018-02-14] MEDS: traZODone 100 MG TAB PO SCH (20:21)
[2018-02-14] MEDS: SERTRALINE HCL 100 MG TAB PO SCH (20:21)
--- NOTE | 2018-02-14 22:28 | SOAPPROG ---
MEHREEN Progress Note Assessment/Plan: Assessment: 1. Symptomatic distal right ureteral calculus, s/p ureteroscopy, calculus lithotripsy, and stent placement on 02/13. 2. Pyuria: asymptomatic. 3. BPH. 4. Postop gross hematuria: most likely due to BPH & indwelling ureteral stent. Plan: 1. Edmonds removal, voiding trial. 2. FU on culture results & treat appropriately. 3. Return to office in 2-3 weeks for ureteral stent removal. 4. Continue Flomax and Pyridium upon discharge until stent is removed. Subjective: Denies pain. Had some lightheadedness and dizziness upon standing earlier today. Objective: Vital Signs Temp Pulse Resp BP Pulse Ox 36.9 C 94 15 105/59 L 91 L 02/14/18 20:00 02/14/18 20:00 02/14/18 20:00 02/14/18 20:00 02/14/18 20:00 02/13/18 02/14/18 02/15/18 05:59 05:59 05:59 Intake Total 1129 2200 Output Total 270 150 Balance 859 2050 Physical Exam - Physical Exam General Appearance: alert, no apparent distress, obese Male Genitalia: other (gross hematuria (dark colored w/o clots) w/in Edmonds) Skin: warm/dry Extremities: normal inspection Neuro/Psych: alert, normal mood/affect, oriented x 3 ICD10 Worksheet Patient Problems: Problems Problem Status Onset Acute pyelonephritis Acute Renal colic on right side Acute
[2018-02-14] MEDS: PHENAZOPYRIDINE HCL 200 MG TAB PO SCH (23:00)
[2018-02-14] MEDS ORDERED: NS 500 ML IV ONE (23:45)
[2018-02-15] MEDS: NS 1,000 ML IV SCH ×2 (05:00→15:45)
--- NOTE | 2018-02-15 08:21 | HOSPPROG ---
Hospitalist Progress Note Assessment/Plan: #Symptomatic distal ureteral calculus: s/p ureteroscopy, calculus lithotripsy and stent 02/13 #Enterococcus faecalis: <100K colonies, but treat since febrile. Ampicillin x 10 days #Fever: blood cultures pending. No cough, diarrhea #Chronic hypoxemic resp failure: at night #BPH: Flomax #HTN: Lisinopril #HLD: statin #h/o non-Hodgkins: s/p chemo #Diet: reg #DVT ppx: Lovenox Disp: inpatient admission to for vitals, blood cultures Subjective: "sweaty" No N/V/D Objective: Vital Signs Temp Pulse Resp BP Pulse Ox 36.9 C 119 H 16 99/54 L 92 02/15/18 03:33 02/15/18 03:33 02/15/18 03:33 02/15/18 03:33 02/15/18 03:33 02/14/18 02/15/18 02/16/18 05:59 05:59 05:59 Intake Total 1129 3800 Output Total 270 725 Balance 859 3075 - Time Spent With Patient Time Spent with Patient: greater than 35 minutes Time Spent with Patient: Greater than 35 minutes spent on this patients care, greater than 50% of time spent counseling, educating, and coordinating care regarding the above mentioned plan. - Physical Exam Constitutional: obese, other (diaphoretic) Ears, Nose, Mouth, Throat: moist mucous membranes, hearing normal Cardiovascular: regular rate and rhythym, no murmur, rub, or gallop Respiratory: no respiratory distress, reduced air movement, No expiratory wheeze , No inspiratory crackles Gastrointestinal: normoactive bowel sounds, soft, non-tender abdomen Genitourinary: no bladder fullness, other (no CVA TTP) Skin: warm Musculoskeletal: full muscle strength Neurologic: AAOx3, CN II-XII Intact Psychiatric: interacting appropriately ICD10 Worksheet Patient Problems: Problems Problem Status Onset Acute pyelonephritis Acute Renal colic on right side Acute
[2018-02-15] MEDS: BUDESONIDE/FORMOTEROL 80/4.5 60 PUFFS/MDI IH SCH ×2 (09:06→19:58)
[2018-02-15] MEDS: PANTOPRAZOLE SODIUM 40 MG TAB PO SCH (09:17)
[2018-02-15] MEDS: AMOXICILLIN/CLAVULANATE POT 875/125 MG TAB PO SCH (09:17)
[2018-02-15] MEDS: PHENAZOPYRIDINE HCL 200 MG TAB PO SCH ×3 (09:17→19:58)
[2018-02-15] MEDS: ATORVASTATIN CALCIUM 20 MG TAB PO SCH (09:18)
[2018-02-15] MEDS: VANICREAM CREAM TP SCH (09:18)
[2018-02-15] MEDS: TAMSULOSIN HCL 0.4 MG CAP PO SCH (09:18)
[2018-02-15] MEDS: AMPICILLIN TRIHYDRATE 500 MG CAP PO SCH (17:32)
[2018-02-15] MEDS: SERTRALINE HCL 100 MG TAB PO SCH (19:57)
[2018-02-15] MEDS: OXYCODONE/APAP 5/325 TAB PO PRN (19:57)
[2018-02-15] MEDS: traZODone 100 MG TAB PO SCH (19:58)
[2018-02-16] MEDS: AMPICILLIN TRIHYDRATE 500 MG CAP PO SCH ×5 (00:06→23:03)
[2018-02-16] MEDS: NS 1,000 ML IV SCH ×2 (00:07→13:00)
[2018-02-16] MEDS: OXYCODONE/APAP 5/325 TAB PO PRN (02:37)
[2018-02-16] MEDS: PHENAZOPYRIDINE HCL 200 MG TAB PO SCH ×3 (08:23→21:20)
[2018-02-16] MEDS: TAMSULOSIN HCL 0.4 MG CAP PO SCH (08:23)
[2018-02-16] MEDS: ATORVASTATIN CALCIUM 20 MG TAB PO SCH (08:23)
[2018-02-16] MEDS: PANTOPRAZOLE SODIUM 40 MG TAB PO SCH (08:23)
[2018-02-16] MEDS: BUDESONIDE/FORMOTEROL 80/4.5 60 PUFFS/MDI IH SCH ×2 (08:24→21:04)
[2018-02-16] MEDS: VANICREAM CREAM TP SCH (08:32)
--- NOTE | 2018-02-16 13:23 | HOSPPROG ---
Hospitalist Progress Note Assessment/Plan: #Symptomatic distal ureteral calculus: s/p ureteroscopy, calculus lithotripsy and stent 02/13 #Enterococcus faecalis: <100K colonies, but treat since febrile. Ampicillin x Day 09/29 #Fever: none since 02/14. Blood cultures pending. No cough, diarrhea #Chronic hypoxemic resp failure: at night #Deconditioning: out of chair, walks today #BPH: Flomax #HTN: Lisinopril #HLD: statin #h/o non-Hodgkins: s/p chemo #DVT ppx: lovenox #Disp: hope to Dc tomorrow if clinically improved Subjective: still sweaty. No N/V/D. Objective: Vital Signs Temp Pulse Resp BP Pulse Ox 37.3 C 105 H 18 118/55 L 94 02/16/18 12:55 02/16/18 12:55 02/16/18 12:55 02/16/18 12:55 02/16/18 12:55 Laboratory Results 02/16/18 04:10 02/15/18 02/16/18 02/17/18 05:59 05:59 05:59 Intake Total 3800 2800 Output Total 725 2370 225 Balance 3075 430 -225 - Time Spent With Patient Time Spent with Patient: greater than 35 minutes Time Spent with Patient: Greater than 35 minutes spent on this patients care, greater than 50% of time spent counseling, educating, and coordinating care regarding the above mentioned plan. - Physical Exam Constitutional: no apparent distress Eyes: PERRL Ears, Nose, Mouth, Throat: moist mucous membranes Cardiovascular: regular rate and rhythym Respiratory: no respiratory distress, reduced air movement, No expiratory wheeze , No inspiratory crackles Gastrointestinal: normoactive bowel sounds Genitourinary: no bladder fullness Skin: warm Musculoskeletal: full muscle strength Neurologic: AAOx3, CN II-XII Intact Psychiatric: interacting appropriately ICD10 Worksheet Patient Problems: Problems Problem Status Onset Acute pyelonephritis Acute Renal colic on right side Acute
--- NOTE | 2018-02-16 15:05 | ASMTCMCOM ---
CM Note CM Note Notes: Pt expected to DC with no needs but has been febrile and not ready for DC. CM available if DC needs change. Date Signed: 02/16/2018 03:04 PM Electronically Signed By:Ksenia Pulido LCSW
[2018-02-16] MEDS: SERTRALINE HCL 100 MG TAB PO SCH (21:20)
[2018-02-16] MEDS: traZODone 100 MG TAB PO SCH (21:21)
[2018-02-17] MEDS: AMPICILLIN TRIHYDRATE 500 MG CAP PO SCH ×2 (05:25→11:54)
[2018-02-17 08:48] VITALS: BP 114/67
[2018-02-17] MEDS: PHENAZOPYRIDINE HCL 200 MG TAB PO SCH (09:14)
[2018-02-17] MEDS: TAMSULOSIN HCL 0.4 MG CAP PO SCH (09:14)
[2018-02-17] MEDS: ATORVASTATIN CALCIUM 20 MG TAB PO SCH (09:14)
[2018-02-17] MEDS: PANTOPRAZOLE SODIUM 40 MG TAB PO SCH (09:15)
[2018-02-17] MEDS: BUDESONIDE/FORMOTEROL 80/4.5 60 PUFFS/MDI IH SCH (09:25)
[2018-02-17] MEDS: VANICREAM CREAM TP SCH (10:07)
[2018-02-17] MEDS ORDERED: LACTULOSE 20 GM/30 ML UDCUP PO PRN (10:25)
[2018-02-17] MEDS ORDERED: MAGNESIUM HYDROXIDE 30 ML UDCUP PO PRN (10:25)
[2018-02-17] MEDS ORDERED: POLYETHYLENE GLYCOL 3350 17 GM PKT PO PRN (10:25)
[2018-02-17] MEDS ORDERED: BISACODYL 10 MG SUPP PR PRN (10:25)
--- NOTE | 2018-02-17 11:13 | GDS ---
[f rep st] DISCHARGE SUMMARY DISCHARGE DIAGNOSES: 1. Symptomatic distal ureteral calculus, 2. Enterococcus urinary tract infection. 3. Fever. 4. Chronic hypoxemic respiratory failure. 5. Deconditioning. 6. BPH. 7. Hypertension. 8. Hyperlipidemia. 9. History of non-Hodgkin's lymphoma, status post chemotherapy. HISTORY OF PRESENT ILLNESS: A pleasant 73-year-old male, history of hypertension, hyperlipidemia, presenting with right flank pain. This was intermittent for the past week, dull in nature. It intensified the day prior to admission and had been constant. He had some mild nausea, subjective fevers and chills. Reported normal p.o. intake. No fevers. CT scan in the ER revealed a 6 mm stone in the right distal ureter. HOSPITAL COURSE: 1. Symptomatic distal ureteral calculus: s/p ureteroscopy, calculus lithotripsy and stent placement 02/[address] Berger: Continue Flomax and Pyridium until followup with him in 2-3 weeks for stent removal. 2. Enterococcus faecalis: was initially asymptomatic, so no antibiotics. But, developed a fever, thus we will treat with ampicillin for a total of 10 days. 3. Fever: none in >48hrs. Blood cultures remain negative. Abx 4. Chronic hypoxemic respiratory failure: He uses oxygen at night. 5. Hypertension: Resume lisinopril on Sunday. 6. Hyperlipidemia: Statin. 7. History of non-Hodgkin's lymphoma, status post chemotherapy. DISPOSITION: Patient is stable for discharge home today. DISCHARGE MEDICATIONS: New medications: 1. Ampicillin 4 times a day. 2. Flomax 0.4 mg daily. 3. Pyridium 200 mg t.i.d. FOLLOWUP: 1. Dr. Berger in 2-3 weeks for stent removal. 2. 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 PHYSICAL EXAMINATION: VITAL SIGNS: Temperature 36.7, blood pressure 114/67, heart rate in the 80s, respirations 16, 95% on 1.5 L. GENERAL: Obese male sitting up in no acute distress. HEENT: PERRLA. Moist mucous membranes. CV: Regular rate and rhythm. LUNGS: Clear, but diminished. ABDOMEN: Obese, soft, nontender. : No Edmonds. MUSCULOSKELETAL: 5/5 upper and lower extremity strength. NEURO: 2 through 12. PSYCH: Alert and oriented x3. Time spent on discharge greater than 30 minutes counseling patient on medications and follow up and return precautions. /[id number]/MODL MTDD
[2018-02-17] MEDS ORDERED: SENNOSIDES/DOCUSATE SODIUM TAB PO SCH (21:00)
== END 2018-02-17 13:27 | disposition home or self-care (01) | DRG 669 ==
LOC: INTOOBSV 14:32 → F1N 16:00 → OBSVTOIN 02-13 16:44
PROVIDERS: ADMIT Internal Medicine; ATTEND Internal Medicine
PROC: 0TC68ZZ Extirpation of Matter from Right Ureter, Via Natural or Artificial Opening Endoscopic (ICD-10-PCS; principal; 2018-02-13 16:30)
PROC: 0T768DZ Dilation of Right Ureter with Intraluminal Device, Via Natural or Artificial Opening Endoscopic (ICD-10-PCS; principal; 2018-02-13 16:30)
DX: N20.1 Calculus of ureter (principal); J96.11 Chronic respiratory failure with hypoxia; N39.0 Urinary tract infection, site not specified; E86.9 Volume depletion, unspecified; B95.2 Enterococcus as the cause of diseases classified elsewhere; N40.1 Benign prostatic hyperplasia with lower urinary tract symptoms; I10 Essential (primary) hypertension; E78.5 Hyperlipidemia, unspecified; J44.9 Chronic obstructive pulmonary disease, unspecified
CPT/HCPCS: 82365-90; 96365; C1726; C1758; C1769; G0378; J0696; J1100; J1170; J1885; J2405; J2704; J3010; Q9966; Q9967